=== PATIENT | male | born 1965 | race Caucasian/White ===

== ENCOUNTER 2025-01-02 05:34 | Inpatient (IN) ==
[2025-01-02] MEDS ORDERED: IOPAMIDOL 100 ML BOTTLE IV ONE (05:35)
[2025-01-02] MEDS: ONDANSETRON 4 MG/2 ML VIAL IV ONE (05:58)
[2025-01-02] MEDS: fentaNYL 100 MCG/2 ML VIAL IV PRN ×2 (05:58→09:31)
[2025-01-02] MEDS: cefTRIAXone 2 GM in DEXTROSE 5% IN WATER 50 ML IV ONE (05:59)
[2025-01-02 06:05] LABS: Basophils # (Auto) 0.03 K/mcL (0.00-0.30); Basophils % (Auto) 0.1 % (0.0-2.0); Eosinophils # (Auto) 0.08 K/mcL (0.00-0.70); Eosinophils % (Auto) 0.4 % (0.0-7.0); Hematocrit 41.5 % (40.1-51.0); Hemoglobin 14.2 g/dL (13.7-17.5); Lymphocytes # (Auto) 3.53 K/mcL (1.50-4.80); Lymphocytes % (Auto) 15.9 % (15.5-49.0); Mean Corpuscular HGB Conc 34.2 g/dL (31.0-36.0); Monocytes # (Auto) 2.84 K/mcL (0.10-0.90); Monocytes % (Auto) 12.8 % (1.0-12.0); Neutrophils % (Auto) 70.5 % (38.0-78.0); Platelet Count 392 K/mcL (140-440); RBC 4.82 M/mcL (4.63-6.08); WBC 22.2 K/mcL (4.5-11.0)
[2025-01-02] MEDS: ACETAMINOPHEN 500 MG TABLET PO ONE (06:05)
[2025-01-02] MEDS: LACTATED RINGERS 1,000 ML IV ONE (06:06)
[2025-01-02] MEDS: CEFEPIME 2 GM VIAL IV ONE (06:15)
[2025-01-02 06:21] LABS: ALT/SGPT 22 U/L (<40); AST/SGOT 22 U/L (<40); Albumin 3.7 gm/dL (3.2-5.2); Albumin/Globulin Ratio 1.1 (1.0-2.3); Alkaline Phosphatase 101 U/L (39-117); Anion Gap 12.0 (8.0-16.0); Bilirubin,Total 0.8 mg/dL (0.1-1.0); Blood Urea Nitrogen 12 mg/dL (6-20); C-Reactive Protein 11.80 mg/dL (0.03-0.80); Calcium 8.8 mg/dL (8.6-10.4); Carbon Dioxide 21 mmol/L (22-30); Chloride 99 mmol/L (96-108); Globulin 3.5 gm/dL (2.2-3.7); Glucose 118 mg/dL (70-105); Potassium 4.1 mmol/L (3.3-5.1); Sodium 132 mmol/L (133-145)
[2025-01-02 07:01] LABS: Bacteria,Urine 0 /hpf (0); Bilirubin,Urine NEGATIVE (Negative); Color,Urine YELLOW; Glucose,Urine (UA) NEGATIVE (Negative); Ketones,Urine NEGATIVE (Negative); Leukocyte Esterase,Urine NEGATIVE /uL (Negative); Mucus,Urine Few /hpf; PH,Urine 6.0 (5.0-9.0); Protein,Urine 30 mg/dL (Negative); Specific Gravity,Urine 1.025 (1.000-1.035); Urobilinogen,Urine 1.0 mg/dL
[2025-01-02] MEDS ORDERED: ACETAMINOPHEN 325 MG TABLET PO PRN (07:26)
[2025-01-02] MEDS ORDERED: fentaNYL 100 MCG/2 ML VIAL IV PRN (07:26)
[2025-01-02] MEDS: LACTATED RINGERS 1,000 ML IV SCH (07:33)
[2025-01-02] MEDS: TAMSULOSIN 0.4 MG CAPSULE PO SCH (10:02)
[2025-01-02] MEDS: LOSARTAN 25 MG TABLET PO SCH (10:03)
[2025-01-02] MEDS: CIPROFLOXACIN 400 MG/200 ML BAG IV SCH (10:03)
[2025-01-02] MEDS: metroNIDAZOLE 500 MG/100 ML BAG IV SCH (10:04)
[2025-01-02] MEDS: ACETAMINOPHEN 1,000 MG/100 ML BAG IV SCH (11:59)
[2025-01-02] MEDS: ONDANSETRON 4 MG/2 ML VIAL IV PRN ×2 (12:01→23:23)
[2025-01-02] MEDS: NICOTINE 14 MG PATCH TOPICAL SCH (13:16)
[2025-01-02] MEDS: 0.9 % SODIUM CHLORIDE 1,000 ML IV SCH (14:22)
[2025-01-02] MEDS ORDERED: PROCHLORPERAZINE 10 MG/2 ML VIAL IV PRN (23:15)
[2025-01-02] MEDS: ONDANSETRON 4 MG/2 ML VIAL ONE (23:30)
[2025-01-03 07:14] LABS: ALT/SGPT 19 U/L (<40); AST/SGOT 18 U/L (<40); Albumin 3.4 gm/dL (3.2-5.2); Albumin/Globulin Ratio 1.0 (1.0-2.3); Alkaline Phosphatase 103 U/L (39-117); Anion Gap 11.0 (8.0-16.0); Bilirubin,Direct 0.6 mg/dL (<0.3); Bilirubin,Total 1.0 mg/dL (0.1-1.0); Blood Urea Nitrogen 10 mg/dL (6-20); Calcium 8.5 mg/dL (8.6-10.4); Carbon Dioxide 21 mmol/L (22-30); Chloride 100 mmol/L (96-108); Globulin 3.4 gm/dL (2.2-3.7); Glucose 107 mg/dL (70-105); Phosphorous 2.4 mg/dL (2.5-4.5); Potassium 3.7 mmol/L (3.3-5.1); Sodium 132 mmol/L (133-145); Triglycerides 57 mg/dL (<150); Uric Acid 3.2 mg/dL (2.5-8.0)
[2025-01-03 07:24] LABS: Basophils # (Auto) 0.03 K/mcL (0.00-0.30); Basophils % (Auto) 0.1 % (0.0-2.0); Eosinophils # (Auto) 0.10 K/mcL (0.00-0.70); Eosinophils % (Auto) 0.4 % (0.0-7.0); Hematocrit 40.5 % (40.1-51.0); Hemoglobin 13.7 g/dL (13.7-17.5); Lymphocytes # (Auto) 2.61 K/mcL (1.50-4.80); Lymphocytes % (Auto) 10.0 % (15.5-49.0); Mean Corpuscular HGB Conc 33.8 g/dL (31.0-36.0); Monocytes # (Auto) 2.40 K/mcL (0.10-0.90); Monocytes % (Auto) 9.2 % (1.0-12.0); Neutrophils % (Auto) 80.0 % (38.0-78.0); Platelet Count 382 K/mcL (140-440); RBC 4.66 M/mcL (4.63-6.08); WBC 26.2 K/mcL (4.5-11.0)
[2025-01-03] MEDS: HYDROmorphone 0.5 MG/0.5 ML SYRINGE IV PRN (16:07)
[2025-01-04 06:08] LABS: Basophils # (Auto) 0.03 K/mcL (0.00-0.30); Basophils % (Auto) 0.1 % (0.0-2.0); Eosinophils # (Auto) 0.16 K/mcL (0.00-0.70); Eosinophils % (Auto) 0.8 % (0.0-7.0); Hematocrit 39.1 % (40.1-51.0); Hemoglobin 13.2 g/dL (13.7-17.5); Lymphocytes # (Auto) 1.94 K/mcL (1.50-4.80); Lymphocytes % (Auto) 9.1 % (15.5-49.0); Mean Corpuscular HGB Conc 33.8 g/dL (31.0-36.0); Monocytes # (Auto) 1.80 K/mcL (0.10-0.90); Monocytes % (Auto) 8.5 % (1.0-12.0); Neutrophils % (Auto) 81.1 % (38.0-78.0); Platelet Count 404 K/mcL (140-440); RBC 4.50 M/mcL (4.63-6.08); WBC 21.2 K/mcL (4.5-11.0)
[2025-01-04 06:30] LABS: ALT/SGPT 15 U/L (<40); AST/SGOT 17 U/L (<40); Albumin 3.1 gm/dL (3.2-5.2); Albumin/Globulin Ratio 0.9 (1.0-2.3); Alkaline Phosphatase 107 U/L (39-117); Anion Gap 10.0 (8.0-16.0); Bilirubin,Direct 0.3 mg/dL (<0.3); Bilirubin,Total 0.5 mg/dL (0.1-1.0); Blood Urea Nitrogen 9 mg/dL (6-20); Calcium 8.4 mg/dL (8.6-10.4); Carbon Dioxide 23 mmol/L (22-30); Chloride 101 mmol/L (96-108); Globulin 3.4 gm/dL (2.2-3.7); Glucose 112 mg/dL (70-105); Phosphorous 2.9 mg/dL (2.5-4.5); Potassium 3.7 mmol/L (3.3-5.1); Sodium 134 mmol/L (133-145); Triglycerides 69 mg/dL (<150); Uric Acid 3.1 mg/dL (2.5-8.0)
[2025-01-05 06:18] LABS: Basophils # (Auto) 0.03 K/mcL (0.00-0.30); Basophils % (Auto) 0.2 % (0.0-2.0); Eosinophils # (Auto) 1.07 K/mcL (0.00-0.70); Eosinophils % (Auto) 6.7 % (0.0-7.0); Hematocrit 36.6 % (40.1-51.0); Hemoglobin 12.5 g/dL (13.7-17.5); Lymphocytes # (Auto) 1.25 K/mcL (1.50-4.80); Lymphocytes % (Auto) 7.9 % (15.5-49.0); Mean Corpuscular HGB Conc 34.2 g/dL (31.0-36.0); Monocytes # (Auto) 1.82 K/mcL (0.10-0.90); Monocytes % (Auto) 11.5 % (1.0-12.0); Neutrophils % (Auto) 73.3 % (38.0-78.0); Platelet Count 433 K/mcL (140-440); RBC 4.24 M/mcL (4.63-6.08); WBC 15.9 K/mcL (4.5-11.0)
[2025-01-05 06:38] LABS: ALT/SGPT 9 U/L (<40); AST/SGOT 17 U/L (<40); Albumin 3.0 gm/dL (3.2-5.2); Albumin/Globulin Ratio 0.9 (1.0-2.3); Alkaline Phosphatase 103 U/L (39-117); Anion Gap 9.0 (8.0-16.0); Bilirubin,Direct 0.3 mg/dL (<0.3); Bilirubin,Total 0.5 mg/dL (0.1-1.0); Blood Urea Nitrogen 7 mg/dL (6-20); Calcium 8.0 mg/dL (8.6-10.4); Carbon Dioxide 24 mmol/L (22-30); Chloride 100 mmol/L (96-108); Globulin 3.2 gm/dL (2.2-3.7); Glucose 101 mg/dL (70-105); Phosphorous 1.8 mg/dL (2.5-4.5); Potassium 3.1 mmol/L (3.3-5.1); Sodium 133 mmol/L (133-145); Triglycerides 91 mg/dL (<150); Uric Acid 2.8 mg/dL (2.5-8.0)
[2025-01-05] MEDS ORDERED: IOPAMIDOL 100 ML BOTTLE IV ONE (10:58)
[2025-01-05] MEDS: POTASSIUM PHOSPHATE 40 MEQ in DEXTROSE 5% IN WATER 500 ML IV SCH (17:34)
[2025-01-06] MEDS: POTASSIUM PHOSPHATE 66 MEQ/15 ML VIAL IV ONE (01:47)
[2025-01-06 06:41] LABS: INR 1.1 (0.9-1.1); Partial Thromboplastin Time 44.0 sec (20.0-37.0); Prothrombin Time 15.2 sec (11.9-14.5)
[2025-01-06 06:59] LABS: ALT/SGPT 14 U/L (<40); AST/SGOT 20 U/L (<40); Albumin 2.9 gm/dL (3.2-5.2); Albumin/Globulin Ratio 0.9 (1.0-2.3); Alkaline Phosphatase 106 U/L (39-117); Anion Gap 11.0 (8.0-16.0); Bilirubin,Direct 0.2 mg/dL (<0.3); Bilirubin,Total 0.4 mg/dL (0.1-1.0); Blood Urea Nitrogen 6 mg/dL (6-20); Calcium 8.2 mg/dL (8.6-10.4); Carbon Dioxide 23 mmol/L (22-30); Chloride 100 mmol/L (96-108); Globulin 3.2 gm/dL (2.2-3.7); Glucose 109 mg/dL (70-105); Phosphorous 2.5 mg/dL (2.5-4.5); Potassium 3.1 mmol/L (3.3-5.1); Sodium 134 mmol/L (133-145); Triglycerides 88 mg/dL (<150); Uric Acid 2.5 mg/dL (2.5-8.0)
[2025-01-06] MEDS ORDERED: NALOXONE HCL 0.4 MG/ML VIAL IV PRN (09:59)
[2025-01-06] MEDS ORDERED: FLUMAZENIL 0.1 MG/ML ML IV PRN (09:59)
[2025-01-06 12:08] LABS: Basophils # (Auto) 0.04 K/mcL (0.00-0.30); Basophils % (Auto) 0.3 % (0.0-2.0); Eosinophils # (Auto) 1.02 K/mcL (0.00-0.70); Eosinophils % (Auto) 6.7 % (0.0-7.0); Hematocrit 35.6 % (40.1-51.0); Hemoglobin 12.2 g/dL (13.7-17.5); Lymphocytes # (Auto) 2.25 K/mcL (1.50-4.80); Lymphocytes % (Auto) 14.7 % (15.5-49.0); Mean Corpuscular HGB Conc 34.3 g/dL (31.0-36.0); Monocytes # (Auto) 2.39 K/mcL (0.10-0.90); Monocytes % (Auto) 15.6 % (1.0-12.0); Neutrophils % (Auto) 62.4 % (38.0-78.0); Platelet Count 456 K/mcL (140-440); RBC 4.17 M/mcL (4.63-6.08); WBC 15.3 K/mcL (4.5-11.0)
[2025-01-06] MEDS: fentaNYL 100 MCG/2 ML VIAL IV ONE (12:46)
[2025-01-06] MEDS: MIDAZOLAM 2 MG/2 ML VIAL IV ONE (12:46)
[2025-01-06] MEDS: BENZONATATE 100 MG CAPSULE PO ONE (15:58)
[2025-01-06] MEDS: POTASSIUM CHLORIDE 20 MEQ TABLET PO ONE (15:58)
[2025-01-06] MEDS: POTASSIUM PHOSPHATE 40 MEQ in DEXTROSE 5% IN WATER 500 ML IV SCH (16:39)
[2025-01-06] MEDS ORDERED: BENZONATATE 100 MG CAPSULE PO PRN (23:00)
[2025-01-07] MEDS ORDERED: SCOPOLAMINE 1 PATCH PATCH TOPICAL PRN (06:00)
[2025-01-07 06:18] LABS: Basophils % (Auto) 0.3 % (0.0-2.0); Eosinophils # (Auto) 1.35 K/mcL (0.00-0.70); Eosinophils % (Auto) 10.3 % (0.0-7.0); Hematocrit 36.5 % (40.1-51.0); Hemoglobin 12.5 g/dL (13.7-17.5); Lymphocytes # (Auto) 2.16 K/mcL (1.50-4.80); Lymphocytes % (Auto) 16.5 % (15.5-49.0); Mean Corpuscular HGB Conc 34.2 g/dL (31.0-36.0); Monocytes # (Auto) 2.07 K/mcL (0.10-0.90); Monocytes % (Auto) 15.8 % (1.0-12.0); Neutrophils % (Auto) 56.8 % (38.0-78.0); Platelet Count 491 K/mcL (140-440); RBC 4.26 M/mcL (4.63-6.08); WBC 13.1 K/mcL (4.5-11.0)
[2025-01-07 06:19] LABS: Basophils # (Auto) 0.04 K/mcL (0.00-0.30)
[2025-01-07 06:34] LABS: ALT/SGPT 15 U/L (<40); AST/SGOT 23 U/L (<40); Albumin 2.7 gm/dL (3.2-5.2); Albumin/Globulin Ratio 0.8 (1.0-2.3); Alkaline Phosphatase 97 U/L (39-117); Anion Gap 9.0 (8.0-16.0); Bilirubin,Direct < 0.2 mg/dL (0-0.3); Bilirubin,Total < 0.2 mg/dL (0.1-1.0); Blood Urea Nitrogen 4 mg/dL (6-20); Calcium 8.2 mg/dL (8.6-10.4); Carbon Dioxide 24 mmol/L (22-30); Chloride 105 mmol/L (96-108); Globulin 3.2 gm/dL (2.2-3.7); Glucose 104 mg/dL (70-105); Phosphorous 3.4 mg/dL (2.5-4.5); Potassium 3.5 mmol/L (3.3-5.1); Sodium 138 mmol/L (133-145); Triglycerides 109 mg/dL (<150); Uric Acid 2.0 mg/dL (2.5-8.0)
[2025-01-07] MEDS ORDERED: MIDAZOLAM 2 MG/2 ML VIAL ONE (08:54)
[2025-01-07] MEDS ORDERED: fentaNYL 100 MCG/2 ML VIAL ONE ×2 (08:54→13:43)
[2025-01-07] MEDS ORDERED: LIDOCAINE 2% PF 5 ML VIAL ONE (08:55)
[2025-01-07] MEDS ORDERED: MAGNESIUM SULFATE 2 GM/50 ML BAG IV ONE (08:55)
[2025-01-07] MEDS ORDERED: DEXAMETHASONE 10 MG/ML VIAL ONE (08:55)
[2025-01-07] MEDS ORDERED: GLYCOPYRROLATE 0.2 MG/ML VIAL IV ONE (08:55)
[2025-01-07] MEDS ORDERED: PROPOFOL 200 MG/20 ML VIAL IV ONE (08:55)
[2025-01-07] MEDS ORDERED: FAMOTIDINE/PF 20 MG/2 ML VIAL IV ONE (08:55)
[2025-01-07] MEDS ORDERED: ROCURONIUM 10 MG/ML ML IV ONE (08:55)
[2025-01-07] MEDS ORDERED: ONDANSETRON 4 MG/2 ML VIAL ONE (08:55)
[2025-01-07] MEDS ORDERED: PHENYLephrine 1 MG/10 ML SYRINGE (ANEST) ONE (11:14)
[2025-01-07] MEDS ORDERED: BUPIVACAINE PF 0.5% 10 ML VIAL ONE (11:47)
[2025-01-07] MEDS ORDERED: BUPIVACAINE LIPOSOMAL 1.3% 10 ML VIAL IJ ONE ×2 (11:47)
[2025-01-07] MEDS ORDERED: SUGAMMADEX SODIUM 200 MG/2 ML VIAL IV ONE (12:44)
[2025-01-07] MEDS ORDERED: HYDROmorphone 0.5 MG/0.5 ML SYRINGE ONE (13:07)
[2025-01-07] MEDS ORDERED: diphenhydrAMINE 50 MG/ML VIAL IV PRN (13:27)
[2025-01-07] MEDS ORDERED: IPRATROPIUM/ALBUTEROL 3 ML AMPUL.NEB NEB PRN (13:27)
[2025-01-07] MEDS ORDERED: NALOXONE HCL 0.4 MG/ML VIAL IV PRN (13:27)
[2025-01-07] MEDS ORDERED: hydrALAZINE 20 MG/ML VIAL IV PRN (13:54)
[2025-01-07] MEDS: ACETAMINOPHEN 1,000 MG/100 ML BAG IV ONE (14:10)
[2025-01-07] MEDS: METHOCARBAMOL 1,000 MG/10 ML VIAL IV PRN (14:23)
[2025-01-07] MEDS: HYDROmorphone 0.5 MG/0.5 ML SYRINGE IV PRN (14:23)
[2025-01-07] MEDS: fentaNYL 100 MCG/2 ML VIAL IV PRN (14:26)
[2025-01-07] MEDS: ONDANSETRON 4 MG/2 ML VIAL IV PRN (14:33)
[2025-01-07] MEDS: MEPERIDINE 25 MG/ML VIAL IV PRN (14:45)
[2025-01-07] MEDS: METOCLOPRAMIDE 10 MG/2 ML VIAL IV SCH (17:32)
[2025-01-08 06:35] LABS: Basophils # (Auto) 0.01 K/mcL (0.00-0.30); Basophils % (Auto) 0 % (0.0-2.0); Eosinophils # (Auto) 0.03 K/mcL (0.00-0.70); Eosinophils % (Auto) 0.1 % (0.0-7.0); Hematocrit 35.4 % (40.1-51.0); Hemoglobin 12.1 g/dL (13.7-17.5); Lymphocytes # (Auto) 2.22 K/mcL (1.50-4.80); Lymphocytes % (Auto) 10.9 % (15.5-49.0); Mean Corpuscular HGB Conc 34.2 g/dL (31.0-36.0); Monocytes # (Auto) 2.44 K/mcL (0.10-0.90); Monocytes % (Auto) 12.0 % (1.0-12.0); Neutrophils % (Auto) 76.7 % (38.0-78.0); Platelet Count 599 K/mcL (140-440); RBC 4.12 M/mcL (4.63-6.08); WBC 20.3 K/mcL (4.5-11.0)
[2025-01-08 06:49] LABS: ALT/SGPT 18 U/L (<40); AST/SGOT 23 U/L (<40); Albumin 2.7 gm/dL (3.2-5.2); Albumin/Globulin Ratio 0.8 (1.0-2.3); Alkaline Phosphatase 92 U/L (39-117); Anion Gap 8.0 (8.0-16.0); Bilirubin,Direct < 0.2 mg/dL (0-0.3); Bilirubin,Total 0.2 mg/dL (0.1-1.0); Blood Urea Nitrogen 7 mg/dL (6-20); Calcium 8.0 mg/dL (8.6-10.4); Carbon Dioxide 25 mmol/L (22-30); Chloride 103 mmol/L (96-108); Globulin 3.3 gm/dL (2.2-3.7); Glucose 124 mg/dL (70-105); Phosphorous 3.3 mg/dL (2.5-4.5); Potassium 4.2 mmol/L (3.3-5.1); Sodium 136 mmol/L (133-145); Triglycerides 104 mg/dL (<150); Uric Acid 2.1 mg/dL (2.5-8.0)
[2025-01-08] MEDS ORDERED: 0.9 % SODIUM CHLORIDE 10 ML SYRINGE IV PRN (08:00)
[2025-01-08] MEDS ORDERED: SODIUM CHLORIDE IRRIG SOLUTION 250 ML BOTTLE IRR ONE (08:55)
[2025-01-08] MEDS ORDERED: LIDOCAINE 1% 10 ML VIAL SQ ONE (08:55)
[2025-01-08] MEDS ORDERED: HEPARIN 10 UNITS/ML 5ML FLUSH IV ONE (08:55)
[2025-01-08] MEDS: 0.9 % SODIUM CHLORIDE 10 ML SYRINGE IV SCH (09:30)
[2025-01-08] MEDS: HEPARIN 10 UNITS/ML 5ML FLUSH IV SCH ×2 (09:59)
[2025-01-08] MEDS: HYDROmorphone 0.5 MG/0.5 ML SYRINGE IV PRN (12:14)
[2025-01-08] MEDS ORDERED: TPN PER PHARMACY IV SCH (15:00)
[2025-01-08] MEDS: INSULIN LISPRO 1 UNIT/0.01 ML UNIT SQ SCH (17:24)
[2025-01-08] MEDS: KETOROLAC 30 MG/ML VIAL ONE (23:03)
[2025-01-08] MEDS: KETOROLAC 30 MG/ML VIAL IV PRN (23:10)
[2025-01-09 06:31] LABS: Basophils # (Auto) 0.03 K/mcL (0.00-0.30); Basophils % (Auto) 0.2 % (0.0-2.0); Eosinophils # (Auto) 1.27 K/mcL (0.00-0.70); Eosinophils % (Auto) 7.5 % (0.0-7.0); Hematocrit 34.8 % (40.1-51.0); Hemoglobin 11.4 g/dL (13.7-17.5); Lymphocytes # (Auto) 2.43 K/mcL (1.50-4.80); Lymphocytes % (Auto) 14.3 % (15.5-49.0); Mean Corpuscular HGB Conc 32.8 g/dL (31.0-36.0); Monocytes # (Auto) 2.08 K/mcL (0.10-0.90); Monocytes % (Auto) 12.2 % (1.0-12.0); Neutrophils % (Auto) 65.0 % (38.0-78.0); Platelet Count 568 K/mcL (140-440); RBC 3.91 M/mcL (4.63-6.08); WBC 17.0 K/mcL (4.5-11.0)
[2025-01-09 06:50] LABS: ALT/SGPT 14 U/L (<40); AST/SGOT 20 U/L (<40); Albumin 2.4 gm/dL (3.2-5.2); Albumin/Globulin Ratio 0.8 (1.0-2.3); Alkaline Phosphatase 87 U/L (39-117); Anion Gap 7.0 (8.0-16.0); Bilirubin,Direct < 0.2 mg/dL (0-0.3); Bilirubin,Total < 0.2 mg/dL (0.1-1.0); Blood Urea Nitrogen 11 mg/dL (6-20); Calcium 7.9 mg/dL (8.6-10.4); Carbon Dioxide 31 mmol/L (22-30); Chloride 104 mmol/L (96-108); Globulin 3.2 gm/dL (2.2-3.7); Glucose 145 mg/dL (70-105); Phosphorous 2.9 mg/dL (2.5-4.5); Potassium 3.3 mmol/L (3.3-5.1); Sodium 142 mmol/L (133-145); Triglycerides 116 mg/dL (<150); Uric Acid 2.8 mg/dL (2.5-8.0)
[2025-01-09] MEDS: HYDROmorphone 0.5 MG/0.5 ML SYRINGE IV PRN (14:23)
[2025-01-10 06:20] LABS: Basophils # (Auto) 0.05 K/mcL (0.00-0.30); Basophils % (Auto) 0.3 % (0.0-2.0); Eosinophils # (Auto) 1.47 K/mcL (0.00-0.70); Eosinophils % (Auto) 9.6 % (0.0-7.0); Hematocrit 35.9 % (40.1-51.0); Hemoglobin 11.9 g/dL (13.7-17.5); Lymphocytes # (Auto) 2.69 K/mcL (1.50-4.80); Lymphocytes % (Auto) 17.5 % (15.5-49.0); Mean Corpuscular HGB Conc 33.1 g/dL (31.0-36.0); Monocytes # (Auto) 1.50 K/mcL (0.10-0.90); Monocytes % (Auto) 9.8 % (1.0-12.0); Neutrophils % (Auto) 61.8 % (38.0-78.0); Platelet Count 730 K/mcL (140-440); RBC 4.12 M/mcL (4.63-6.08); WBC 15.4 K/mcL (4.5-11.0)
[2025-01-10 06:38] LABS: ALT/SGPT 15 U/L (<40); AST/SGOT 24 U/L (<40); Albumin 2.7 gm/dL (3.2-5.2); Albumin/Globulin Ratio 0.8 (1.0-2.3); Alkaline Phosphatase 137 U/L (39-117); Anion Gap 9.0 (8.0-16.0); Bilirubin,Direct < 0.2 mg/dL (0-0.3); Bilirubin,Total 0.2 mg/dL (0.1-1.0); Blood Urea Nitrogen 14 mg/dL (6-20); Calcium 8.3 mg/dL (8.6-10.4); Carbon Dioxide 30 mmol/L (22-30); Chloride 103 mmol/L (96-108); Globulin 3.6 gm/dL (2.2-3.7); Glucose 141 mg/dL (70-105); Phosphorous 3.7 mg/dL (2.5-4.5); Potassium 3.3 mmol/L (3.3-5.1); Sodium 142 mmol/L (133-145); Triglycerides 162 mg/dL (<150); Uric Acid 2.7 mg/dL (2.5-8.0)
[2025-01-10] MEDS: FAT EMULSION 20% 250 ML in PREMIX 1 BAG IV SCH (16:32)
[2025-01-11 06:53] LABS: Basophils # (Auto) 0.04 K/mcL (0.00-0.30); Basophils % (Auto) 0.3 % (0.0-2.0); Eosinophils # (Auto) 1.59 K/mcL (0.00-0.70); Eosinophils % (Auto) 9.9 % (0.0-7.0); Hematocrit 34.5 % (40.1-51.0); Hemoglobin 11.8 g/dL (13.7-17.5); Lymphocytes # (Auto) 2.70 K/mcL (1.50-4.80); Lymphocytes % (Auto) 16.9 % (15.5-49.0); Mean Corpuscular HGB Conc 34.2 g/dL (31.0-36.0); Monocytes # (Auto) 1.67 K/mcL (0.10-0.90); Monocytes % (Auto) 10.5 % (1.0-12.0); Neutrophils % (Auto) 61.6 % (38.0-78.0); Platelet Count 803 K/mcL (140-440); RBC 3.96 M/mcL (4.63-6.08); WBC 16.0 K/mcL (4.5-11.0)
[2025-01-11 07:12] LABS: ALT/SGPT 16 U/L (<40); AST/SGOT 24 U/L (<40); Albumin 2.7 gm/dL (3.2-5.2); Albumin/Globulin Ratio 0.8 (1.0-2.3); Alkaline Phosphatase 192 U/L (39-117); Anion Gap 8.0 (8.0-16.0); Bilirubin,Direct < 0.2 mg/dL (0-0.3); Bilirubin,Total 0.2 mg/dL (0.1-1.0); Blood Urea Nitrogen 17 mg/dL (6-20); Calcium 8.4 mg/dL (8.6-10.4); Carbon Dioxide 31 mmol/L (22-30); Chloride 103 mmol/L (96-108); Globulin 3.6 gm/dL (2.2-3.7); Glucose 132 mg/dL (70-105); Phosphorous 3.9 mg/dL (2.5-4.5); Potassium 3.3 mmol/L (3.3-5.1); Sodium 142 mmol/L (133-145); Triglycerides 116 mg/dL (<150); Uric Acid 3.0 mg/dL (2.5-8.0)
[2025-01-11] MEDS: PYRIDOSTIGMINE BROMIDE 10 MG/2 ML AMPUL IV SCH (13:42)
[2025-01-12 06:45] LABS: Basophils # (Auto) 0.05 K/mcL (0.00-0.30); Basophils % (Auto) 0.3 % (0.0-2.0); Eosinophils # (Auto) 1.44 K/mcL (0.00-0.70); Eosinophils % (Auto) 9.1 % (0.0-7.0); Hematocrit 35.6 % (40.1-51.0); Hemoglobin 12.0 g/dL (13.7-17.5); Lymphocytes # (Auto) 2.79 K/mcL (1.50-4.80); Lymphocytes % (Auto) 17.7 % (15.5-49.0); Mean Corpuscular HGB Conc 33.7 g/dL (31.0-36.0); Monocytes # (Auto) 1.59 K/mcL (0.10-0.90); Monocytes % (Auto) 10.1 % (1.0-12.0); Neutrophils % (Auto) 61.9 % (38.0-78.0); Platelet Count 873 K/mcL (140-440); RBC 4.08 M/mcL (4.63-6.08); WBC 15.8 K/mcL (4.5-11.0)
[2025-01-12 07:31] LABS: ALT/SGPT 21 U/L (<40); AST/SGOT 31 U/L (<40); Albumin 2.8 gm/dL (3.2-5.2); Albumin/Globulin Ratio 0.8 (1.0-2.3); Alkaline Phosphatase 224 U/L (39-117); Anion Gap 10.0 (8.0-16.0); Bilirubin,Direct < 0.2 mg/dL (0-0.3); Bilirubin,Total 0.3 mg/dL (0.1-1.0); Blood Urea Nitrogen 22 mg/dL (6-20); Calcium 8.7 mg/dL (8.6-10.4); Carbon Dioxide 31 mmol/L (22-30); Chloride 104 mmol/L (96-108); Globulin 3.6 gm/dL (2.2-3.7); Glucose 139 mg/dL (70-105); Phosphorous 3.5 mg/dL (2.5-4.5); Potassium 3.3 mmol/L (3.3-5.1); Sodium 145 mmol/L (133-145); Triglycerides 128 mg/dL (<150); Uric Acid 3.5 mg/dL (2.5-8.0)
[2025-01-13 06:25] LABS: Basophils # (Auto) 0.05 K/mcL (0.00-0.30); Basophils % (Auto) 0.3 % (0.0-2.0); Eosinophils # (Auto) 1.60 K/mcL (0.00-0.70); Eosinophils % (Auto) 8.1 % (0.0-7.0); Hematocrit 36.8 % (40.1-51.0); Hemoglobin 12.2 g/dL (13.7-17.5); Lymphocytes # (Auto) 3.42 K/mcL (1.50-4.80); Lymphocytes % (Auto) 17.2 % (15.5-49.0); Mean Corpuscular HGB Conc 33.2 g/dL (31.0-36.0); Monocytes # (Auto) 2.32 K/mcL (0.10-0.90); Monocytes % (Auto) 11.7 % (1.0-12.0); Neutrophils % (Auto) 62.0 % (38.0-78.0); Platelet Count 890 K/mcL (140-440); RBC 4.20 M/mcL (4.63-6.08); WBC 19.8 K/mcL (4.5-11.0)
[2025-01-13 06:50] LABS: ALT/SGPT 24 U/L (<40); AST/SGOT 32 U/L (<40); Albumin 2.9 gm/dL (3.2-5.2); Albumin/Globulin Ratio 0.8 (1.0-2.3); Alkaline Phosphatase 244 U/L (39-117); Anion Gap 7.0 (8.0-16.0); Bilirubin,Direct < 0.2 mg/dL (0-0.3); Bilirubin,Total 0.2 mg/dL (0.1-1.0); Blood Urea Nitrogen 20 mg/dL (6-20); Calcium 8.6 mg/dL (8.6-10.4); Carbon Dioxide 26 mmol/L (22-30); Chloride 103 mmol/L (96-108); Globulin 3.8 gm/dL (2.2-3.7); Glucose 126 mg/dL (70-105); Phosphorous 3.1 mg/dL (2.5-4.5); Potassium 3.7 mmol/L (3.3-5.1); Sodium 136 mmol/L (133-145); Triglycerides 122 mg/dL (<150); Uric Acid 3.2 mg/dL (2.5-8.0)
[2025-01-14 06:02] LABS: Basophils # (Auto) 0.07 K/mcL (0.00-0.30); Basophils % (Auto) 0.4 % (0.0-2.0); Eosinophils # (Auto) 1.37 K/mcL (0.00-0.70); Eosinophils % (Auto) 7.1 % (0.0-7.0); Hematocrit 36.0 % (40.1-51.0); Hemoglobin 11.8 g/dL (13.7-17.5); Lymphocytes # (Auto) 3.41 K/mcL (1.50-4.80); Lymphocytes % (Auto) 17.7 % (15.5-49.0); Mean Corpuscular HGB Conc 32.8 g/dL (31.0-36.0); Monocytes # (Auto) 2.02 K/mcL (0.10-0.90); Monocytes % (Auto) 10.5 % (1.0-12.0); Neutrophils % (Auto) 63.5 % (38.0-78.0); Platelet Count 854 K/mcL (140-440); RBC 4.08 M/mcL (4.63-6.08); WBC 19.2 K/mcL (4.5-11.0)
[2025-01-14 06:23] LABS: ALT/SGPT 17 U/L (<40); AST/SGOT 22 U/L (<40); Albumin 2.8 gm/dL (3.2-5.2); Albumin/Globulin Ratio 0.8 (1.0-2.3); Alkaline Phosphatase 191 U/L (39-117); Anion Gap 7.0 (8.0-16.0); Bilirubin,Direct < 0.2 mg/dL (0-0.3); Bilirubin,Total 0.2 mg/dL (0.1-1.0); Blood Urea Nitrogen 15 mg/dL (6-20); Calcium 8.3 mg/dL (8.6-10.4); Carbon Dioxide 24 mmol/L (22-30); Chloride 104 mmol/L (96-108); Globulin 3.7 gm/dL (2.2-3.7); Glucose 111 mg/dL (70-105); Phosphorous 3.3 mg/dL (2.5-4.5); Potassium 4.2 mmol/L (3.3-5.1); Sodium 135 mmol/L (133-145); Triglycerides 144 mg/dL (<150); Uric Acid 2.6 mg/dL (2.5-8.0)
[2025-01-14 14:19] LABS: ALT/SGPT 23 U/L (<40); AST/SGOT 25 U/L (<40); Albumin 3.1 gm/dL (3.2-5.2); Albumin/Globulin Ratio 1.0 (1.0-2.3); Alkaline Phosphatase 205 U/L (39-117); Anion Gap 10.0 (8.0-16.0); Bilirubin,Direct < 0.2 mg/dL (0-0.3); Bilirubin,Total < 0.2 mg/dL (0.1-1.0); Blood Urea Nitrogen 16 mg/dL (6-20); Calcium 8.2 mg/dL (8.6-10.4); Carbon Dioxide 23 mmol/L (22-30); Chloride 102 mmol/L (96-108); Globulin 3.2 gm/dL (2.2-3.7); Glucose 116 mg/dL (70-105); Phosphorous 3.3 mg/dL (2.5-4.5); Potassium 4.4 mmol/L (3.3-5.1); Sodium 135 mmol/L (133-145); Triglycerides 169 mg/dL (<150); Uric Acid 2.4 mg/dL (2.5-8.0)
[2025-01-14] MEDS: TPN PER PHARMACY PO ONE (17:29)
[2025-01-14 22:09] LABS: Prealbumin 23.0 mg/dL (20.0-40.0)
[2025-01-15 06:23] LABS: Basophils # (Auto) 0.09 K/mcL (0.00-0.30); Basophils % (Auto) 0.5 % (0.0-2.0); Eosinophils # (Auto) 1.03 K/mcL (0.00-0.70); Eosinophils % (Auto) 5.5 % (0.0-7.0); Hematocrit 34.8 % (40.1-51.0); Hemoglobin 11.5 g/dL (13.7-17.5); Lymphocytes # (Auto) 2.62 K/mcL (1.50-4.80); Lymphocytes % (Auto) 14.1 % (15.5-49.0); Mean Corpuscular HGB Conc 33.0 g/dL (31.0-36.0); Monocytes # (Auto) 1.88 K/mcL (0.10-0.90); Monocytes % (Auto) 10.1 % (1.0-12.0); Neutrophils % (Auto) 69.2 % (38.0-78.0); Platelet Count 797 K/mcL (140-440); RBC 3.96 M/mcL (4.63-6.08); WBC 18.6 K/mcL (4.5-11.0)
[2025-01-15 06:37] LABS: ALT/SGPT 16 U/L (<40); AST/SGOT 21 U/L (<40); Albumin 2.8 gm/dL (3.2-5.2); Albumin/Globulin Ratio 0.8 (1.0-2.3); Alkaline Phosphatase 170 U/L (39-117); Anion Gap 8.0 (8.0-16.0); Bilirubin,Direct < 0.2 mg/dL (0-0.3); Bilirubin,Total < 0.2 mg/dL (0.1-1.0); Blood Urea Nitrogen 15 mg/dL (6-20); Calcium 8.5 mg/dL (8.6-10.4); Carbon Dioxide 23 mmol/L (22-30); Chloride 104 mmol/L (96-108); Globulin 3.7 gm/dL (2.2-3.7); Glucose 106 mg/dL (70-105); Phosphorous 4.1 mg/dL (2.5-4.5); Potassium 4.7 mmol/L (3.3-5.1); Sodium 135 mmol/L (133-145); Triglycerides 134 mg/dL (<150); Uric Acid 3.0 mg/dL (2.5-8.0)
[2025-01-16 06:53] LABS: ALT/SGPT 16 U/L (<40); AST/SGOT 23 U/L (<40); Albumin 2.8 gm/dL (3.2-5.2); Albumin/Globulin Ratio 0.8 (1.0-2.3); Alkaline Phosphatase 158 U/L (39-117); Anion Gap 7.0 (8.0-16.0); Bilirubin,Direct < 0.2 mg/dL (0-0.3); Bilirubin,Total 0.3 mg/dL (0.1-1.0); Blood Urea Nitrogen 14 mg/dL (6-20); Calcium 8.4 mg/dL (8.6-10.4); Carbon Dioxide 23 mmol/L (22-30); Chloride 103 mmol/L (96-108); Globulin 3.7 gm/dL (2.2-3.7); Glucose 95 mg/dL (70-105); Phosphorous 3.7 mg/dL (2.5-4.5); Potassium 4.0 mmol/L (3.3-5.1); Sodium 133 mmol/L (133-145); Triglycerides 133 mg/dL (<150); Uric Acid 4.0 mg/dL (2.5-8.0)
[2025-01-16 10:43] LABS: Basophils # (Auto) 0.08 K/mcL (0.00-0.30); Basophils % (Auto) 0.6 % (0.0-2.0); Eosinophils # (Auto) 0.73 K/mcL (0.00-0.70); Eosinophils % (Auto) 5.2 % (0.0-7.0); Hematocrit 35.6 % (40.1-51.0); Hemoglobin 11.4 g/dL (13.7-17.5); Lymphocytes # (Auto) 2.50 K/mcL (1.50-4.80); Lymphocytes % (Auto) 17.7 % (15.5-49.0); Mean Corpuscular HGB Conc 32.0 g/dL (31.0-36.0); Monocytes # (Auto) 1.86 K/mcL (0.10-0.90); Monocytes % (Auto) 13.2 % (1.0-12.0); Neutrophils % (Auto) 62.7 % (38.0-78.0); Platelet Count 833 K/mcL (140-440); RBC 3.98 M/mcL (4.63-6.08); WBC 14.1 K/mcL (4.5-11.0)
[2025-01-16 16:34] VITALS: TEMP 98.7; O2SAT 94
== END 2025-01-16 17:40 | disposition home health service (06) | DRG 329 ==
LOC: ED 05:34 → MEDSUR 07:56
PROVIDERS: ADMIT Family Medicine Adult Medicine; ATTEND Family Medicine Adult Medicine